=== PATIENT | male | born 1970 | race Hispanic/Latino ===

== ENCOUNTER 2019-02-22 10:21 | Emergency (ER) | payer OTHER ==
[2019-02-22 10:31] VITALS: O2SAT 100
--- NOTE | 2019-02-22 11:13 | C.PDOC ---
History Of Present Illness 48 y/o male, with history of MN last year and hypertension, on high blood pressure medication, comes in to ED complaining of a headache located on the left temporal region. Patient states it is intermittent and has been happening for the past 2 weeks. He reports the headache would come multiple times and go away after a few minutes. Today he states he had a headache 10 times that came strong and radiated to his neck, but went away after a few minutes. Patient admits he has a history of an intracranial bleed a year ago, but doesnt know what kind of bleed. At that time, patient was taking coumadin s/p MN. He notes hes off coumadin now. Denies any trauma, injuries, fever, chills, nausea, vomiting, SOB, or chest pain. Time Seen by Provider: 02/22/19 10:52 Chief Complaint (Nursing): Headache History Per: Patient History/Exam Limitations: no limitations Onset/Duration Of Symptoms: Days Current Symptoms Are (Timing): Still Present Past Medical History Reviewed: Historical Data, Nursing Documentation, Vital Signs Vital Signs: Last Vital Signs Temp 97.6 F 02/22/19 10:24 Pulse 57 L 02/22/19 10:24 Resp 17 02/22/19 10:24 BP 136/73 02/22/19 10:24 Pulse Ox 100 02/22/19 10:24 - Medical History PMH: HTN Surgical History: Coronary Stent (X1) Family History: States: No Known Family Hx - Social History Hx Alcohol Use: No Hx Substance Use: No - Immunization History Hx Tetanus Toxoid Vaccination: No Hx Influenza Vaccination: No Hx Pneumococcal Vaccination: No Review Of Systems Except As Marked, All Systems Reviewed And Found Negative. Constitutional: Negative for: Fever, Chills Cardiovascular: Negative for: Chest Pain Respiratory: Negative for: Shortness of Breath Gastrointestinal: Negative for: Nausea, Vomiting Neurological: Positive for: Headache Physical Exam - Physical Exam Appears: Non-toxic, No Acute Distress Skin: Warm, Dry, No Diaphoretic Head: Atraumatic, Normacephalic Eye(s): bilateral: PERRL, EOMI Oral Mucosa: Moist Neck: Supple Cardiovascular: Rhythm Regular, No Murmur Respiratory: Normal Breath Sounds, No Rales, No Rhonchi, No Wheezing Extremity: No Pedal Edema, No Calf Tenderness Extremity: Bilateral: Atraumatic, Normal Color And Temperature, Normal ROM Neurological/Psych: Oriented x3, Normal Speech, Normal Cognition Gait: Steady ED Course And Treatment O2 Sat by Pulse Oximetry: 100 (RA) Pulse Ox Interpretation: Normal - CT Scan/US Head CT Other Rad Studies (CT/US): Read By Radiologist, Radiology Report Reviewed CT/US Interpretation: FINDINGS: HEMORRHAGE: No intracranial hemorrhage. BRAIN: No mass effect or edema. No atrophy or chronic microvascular ischemic changes. VENTRICLES: Unremarkable. No hydrocephalus. CALVARIUM: Unremarkable. PARANASAL SINUSES: Unremarkable as visualized. No significant inflammatory changes. MASTOID AIR CELLS: Unremarkable as visualized. No inflammatory changes. OTHER FINDINGS: None. IMPRESSION: Normal CT of the Head. No acute intracranial hemorrhage. Medical Decision Making Medical Decision Making: Plan: --Head CT --BMP Discussed case with Dr. Serrano, radiologist equipment operation instructor, who recommended brain CT to rule out bleeding. If no bleed, CTA is optional to rule out aneurysms. Update: Patient is not complaining of any pain now. Gave motrin and valium. Patient recommended to follow up with neurologist Dr. Hyman. Will be discharged home. Disposition Counseled Patient/Family Regarding: Studies Performed, Diagnosis, Need For Followup, Rx Given - Disposition Referrals: Spencer Hyman MD [Staff Provider] - Disposition: HOME/ ROUTINE Disposition Time: 12:35 Condition: STABLE Prescriptions: diaZEpam [Valium] 5 mg PO TID #15 tab Ibuprofen [Motrin] 600 mg PO TID #15 tab Instructions: Muscle Spasms (DC) Forms: [facility] ([place]), General Discharge Instructions - POA Present On Arrival: None - Clinical Impression Clinical Impression: Headache, Muscle spasm - Scribe Statement The provider has reviewed the documentation as recorded by the Jai Ordaz Provider Attestation: All medical record entries made by the Panchoibcarleen were at my direction and personally dictated by me. I have reviewed the chart and agree that the record accurately reflects my personal performance of the history, physical exam, medical decision making, and the department course for this patient. I have also personally directed, reviewed, and agree with the discharge instructions and disposition.
--- NOTE | 2019-02-22 12:16 | CT ---
Date of service: 02/22/2019 PROCEDURE: CT HEAD WITHOUT CONTRAST. HISTORY: head ache with hx of ICB in the past COMPARISON: None available. TECHNIQUE: Axial computed tomography images were obtained through the head/brain without intravenous contrast. Radiation dose: Total exam DLP = 1211.35 mGy-cm. This CT exam was performed using one or more of the following dose reduction techniques: Automated exposure control, adjustment of the mA and/or kV according to patient size, and/or use of iterative reconstruction technique. FINDINGS: HEMORRHAGE: No intracranial hemorrhage. BRAIN: No mass effect or edema. No atrophy or chronic microvascular ischemic changes. VENTRICLES: Unremarkable. No hydrocephalus. CALVARIUM: Unremarkable. PARANASAL SINUSES: Unremarkable as visualized. No significant inflammatory changes. MASTOID AIR CELLS: Unremarkable as visualized. No inflammatory changes. OTHER FINDINGS: None. IMPRESSION: Normal CT of the Head. No acute intracranial hemorrhage.
[2019-02-22 12:42] VITALS: BP 128/68; PULSE 64; RESP 18; TEMP 98.2
== END 2019-02-22 12:45 | disposition home or self-care (01) ==
LOC: C.ER 10:21
DX: R51 Headache (principal); M62.838 Other muscle spasm; I10 Essential (primary) hypertension; I25.2 Old myocardial infarction; Z95.5 Presence of coronary angioplasty implant and graft; F17.210 Nicotine dependence, cigarettes, uncomplicated